=== PATIENT | male | born 1995 | race Caucasian/White ===

== ENCOUNTER 2018-01-29 13:12 | Emergency (ER) | payer BC ==
[~2018-01-29] VITALS: Ht 172.7 cm; Wt 90.7 kg
[2018-01-29 14:13] LABS: ABSOLUTE EOSINOPHILS 0.1 thou/uL (0.0-0.7); ABSOLUTE LYMPHOCYTES 1.9 thou/uL (0.8-5.3); ABSOLUTE MONOCYTES 0.9 thou/uL (0.0-1.2); ABSOLUTE NEUTROPHILS 6.9 thou/uL (1.6-8.1); BASOPHILS 0.2 %; EOSINOPHILS 1.4 %; HEMATOCRIT 46.2 % (42.0-52.0); HEMOGLOBIN 15.3 gm/dL (14.0-18.0); MCH 30.5 pg (26.0-34.0); MCHC 33.1 g/dL (28.0-37.0); MCV 92.1 fL (80.0-100.0); MONOCYTES 8.9 %; NUCLEATED RBCS 0 /100WBC; PLATELET COUNT* 253 thou/uL (150-400); POLYS 70.5 %; RBC 5.01 mil/uL (4.50-6.00); RDW-CV 13.5 % (10.5-14.5); WBC 9.8 thou/uL (4.0-11.0)
[2018-01-29 14:17] LABS: CREATININE 0.7 mg/dL (0.6-1.3); POTASSIUM 3.7 mmol/L (3.5-5.1)
[2018-01-29 14:22] LABS: ALBUMIN 3.9 g/dL (3.4-5.0); TOTAL BILIRUBIN 0.8 mg/dL (<0.1-1.0); TOTAL PROTEIN 7.7 g/dL (6.4-8.2)
[2018-01-29] MEDS ORDERED: FLEXERIL PO ×3 (15:25→15:30)
[2018-01-29] MEDS ORDERED: ULTRAM 50MG TAB50 MG PO (15:30)
[2018-01-29 15:33] VITALS: BP 116/63
== END 2018-01-29 15:34 | disposition home or self-care (01) ==
LOC: M.ERS 13:12
PROVIDERS: Family Medicine
DX: R07.81 Pleurodynia (principal); F17.210 Nicotine dependence, cigarettes, uncomplicated

== ENCOUNTER 2018-11-09 20:16 | Emergency (ER) | payer BC ==
[~2018-11-09] VITALS: Ht 172.7 cm; Wt 93.0 kg
[~2018-11-09 20:16] MED LIST: FLEXERIL PO; ULTRAM 50MG TAB50 MG PO
[2018-11-09 20:48] LABS: ABSOLUTE EOSINOPHILS 0.1 thou/uL (0.0-0.7); ABSOLUTE LYMPHOCYTES 2.9 thou/uL (0.8-5.3); ABSOLUTE MONOCYTES 1.2 thou/uL (0.0-1.2); ABSOLUTE NEUTROPHILS 7.3 thou/uL (1.6-8.1); BASOPHILS 0.3 %; EOSINOPHILS 0.8 %; HEMATOCRIT 44.1 % (42.0-52.0); HEMOGLOBIN 15.2 gm/dL (14.0-18.0); LYMPHOCYTES 25.4 %; MCH 31.1 pg (26.0-34.0); MCHC 34.4 g/dL (28.0-37.0); MCV 90.3 fL (80.0-100.0); MONOCYTES 10.1 %; MPV 7.5 fl. (7.2-11.1); NUCLEATED RBCS 0 /100WBC; PLATELET COUNT* 282 thou/uL (150-400); POLYS 63.4 %; RBC 4.88 mil/uL (4.50-6.00); RDW-CV 13.2 % (10.5-14.5); WBC 11.6 thou/uL (4.0-11.0)
[2018-11-09 20:52] LABS: URINE BILIRUBIN NEGATIVE (Negative); URINE BLOOD NEGATIVE (Negative); URINE CLARITY CLEAR; URINE COLOR YELLOW; URINE GLUCOSE-RANDOM NEGATIVE (Negative); URINE KETONES NEGATIVE (Negative); URINE LEUKOCYTES-REFLEX NEGATIVE (Negative); URINE NITRITE-REFLEX NEGATIVE (Negative); URINE PROTEIN NEGATIVE (Negative); URINE SPECIFIC GRAVITY >= 1.030 (1.005-1.030); URINE UROBILINOGEN 0.2 E.U./dl (0.2-1.0)
[2018-11-09 21:01] LABS: AMP/METHAMP Negative (Negative); BARBITURATES Negative (Negative); BENZODIAZEPINES Negative (Negative); COCAINE Negative (Negative); METHADONE Negative (Negative); OPIATES Negative (Negative); PCP Negative (Negative); THC Negative (Negative)
[2018-11-09 21:06] LABS: ALBUMIN 4.1 g/dL (3.4-5.0); ALKALINE PHOSPHATASE 133 U/L (46-116); ANION GAP 8 mmol/L (7-16); BUN 16 mg/dL (7-18); CALCIUM 8.9 mg/dL (8.5-10.1); CHLORIDE 105 mmol/L (98-107); CO2 27 mmol/L (21-32); GLUCOSE 91 mg/dL (70-99); LIPASE 97 U/L (73-393); POTASSIUM 3.4 mmol/L (3.5-5.1); SGOT 18 U/L (15-37); SGPT 46 U/L (30-65); SODIUM 140 mmol/L (136-145); TOTAL BILIRUBIN 0.6 mg/dL (<0.1-1.0); TOTAL PROTEIN 7.8 g/dL (6.4-8.2); TROPONIN-I LEVEL <0.06 ng/mL (<0.06)
[2018-11-09 21:50] VITALS: BP 116/79
--- NOTE | 2018-11-10 12:15 | EKG ---
[place] [address] ELECTROCARDIOGRAM REPORT Name: EH WAGNER Room: [facility]#: [id number] Admission: 11/09/18 Attend Phys: Discharge: 11/09/18 Date of : [birth year] Report #: [id number] THIS REPORT FOR: //name// [facility] ED Test Date: 2018-11-09 Test Time: 20:23:39 Pat Name: EH WAGNER Department: Room: Gender: M Leadership Development Instructor: SUNITHA : 1995 Requested By: Amadna Kaur Order Number: [id number] MD: Antoine Day Measurements Intervals [place] Rate: 88 P: 43 DE: 155 QRS: 15 QRSD: 95 T: 17 QT: 339 QTc: 410 Interpretive Statements Sinus rhythm No previous ECG available for comparison Electronically Signed On 11-10-2018 12:15:11 CDT by Antoine Day [email or web address] <ELECTRONICALLY SIGNED> By: Antoine Day MD, [facility] 11/10/18 1215 22 22 Antoine Day MD, FACC /EPI
== END 2018-11-09 21:51 | disposition home or self-care (01) ==
LOC: M.ERS 20:16
PROVIDERS: Emergency Medicine
DX: F41.9 Anxiety disorder, unspecified (principal); F17.210 Nicotine dependence, cigarettes, uncomplicated; J45.909 Unspecified asthma, uncomplicated

== ENCOUNTER → 2019-05-08 | Outpatient (CLI) | payer BC | LOC: M.NUC 04-01 13:00 | DX: R10.11 Right upper quadrant pain (principal) ==